=== PATIENT | male | born 1995 | race Two or more races ===

== ENCOUNTER 2018-11-26 19:38 | Emergency (ER) | payer BC ==
[~2018-11-26] VITALS: Ht 182.9 cm; Wt 61.9 kg
[2018-11-26 19:46] VITALS: BP 122/75
== END 2018-11-26 22:41 | disposition left against medical advice (07) ==
LOC: ER 19:38
DX: Z53.21 Procedure and treatment not carried out due to patient leaving prior to being seen by health care provider (principal)

== ENCOUNTER 2021-12-15 17:16 | Emergency (ER) | payer SELFPAY ==
[~2021-12-15] VITALS: Ht 172.7 cm; Wt 80.0 kg
[2021-12-15 17:27] VITALS: BP 108/55
== END 2021-12-15 21:29 | disposition left against medical advice (07) ==
LOC: ER 17:16
DX: F91.8 Other conduct disorders (principal); F12.10 Cannabis abuse, uncomplicated; V43.52XA Car driver injured in collision with other type car in traffic accident, initial encounter; Y93.89 Activity, other specified; Y92.488 Other paved roadways as the place of occurrence of the external cause
CPT/HCPCS: 99283